=== PATIENT | male | born 1945 | race African-American/Black ===

== ENCOUNTER 2018-10-25 20:26 | Observation (INO) | payer MEDICARE ==
[~2018-10-25] VITALS: Ht 185.4 cm; Wt 81.8 kg
--- NOTE | ~2018-10-25 | HEMODYNAMI ---
PATIENT:TAY MORENO MEDICAL RECORD: [id number] : 41 LOCATION:[facility] [id number]- [facility]# [id number] ADMISSION DATE: 10/25/18 Generatedon:10/26/201810:08 Patient name: TAY MORENO Patient #: [id number] SSN: : 1945 Date of study: 10/26/2018 Page: Of Hemodynamic Procedure Report Patient Data Patient Demographics Procedure consent was obtained First Name: TAY Gender: Male Last Name: TIFFANIE : 1945 [facility] Initial: L Age: 73 year(s) Patient #: [id number] Race: Black Additional ID: [id number] Contact details [address]: [address] [place] [address] State: [place] City: [place] Zip code: [address] Admission Admission Data Admission Date: 10/25/2018 Admission Time: 22:42 Room #: D.E07 Procedure Procedure Types Cath Procedure Diagnostic Procedure LHC LHC w/Coronaries Procedure Description Procedure Date Procedure Date: 10/26/2018 Procedure Start Time: 9:58 Procedure End Time: 10:06 Procedure Staff Name Function Maco Villegas MD Performing Physician Torey Calvillo RT Monitor FitOrbit RT Scrub Nando Condon RN Nurse Cliff Quintero RT Machine Cementer Procedure Data Cath Procedure Fluoroscopy Diagnostic fluoroscopy Total fluoroscopy Time: 1.1 time: 1.1 min min Diagnostic fluoroscopy Total fluoroscopy dose: 332 dose: 332 mGy mGy Contrast Material Contrast Material Type Amount (ml) Isovue 300 40 Entry Location Entry Primary Successful Side Size Upsize Upsize Entry Closure [place] ccessful Closure Location (Fr) 1 (Fr) 2 (Fr) Remarks Device Remarks Radial Right 6 Fr Mechanical artery Short Compression Estimated blood loss: 10 ml Diagnostic catheters Device Type Used For End Catheter Placement DIAGNOSTIC [place] 110cm 5 Procedure Fr catheter ([id number]) Procedure Complications No complications Procedure Medications Medication Administration Route Dosage Oxygen etCO2 Nasal cannula 2 l/min Lidocaine 2% added to field 20 Heparin Flush Bag added to field 2 bags (1000units/500ml NS) 0.9% NaCl I.V. 100 ml/hr Radial Cocktail I.A. 1 syringe (Verapomil 2mg/Nitro 400mcg/Heparin 1500units) Versed I.V. 1 mg Fentanyl I.V. 50 mcg Versed I.V. 1 mg Fentanyl I.V. 50 mcg Hemodynamics Rest Heart Rate: 77 (bpm) Snapshots Pre Cath Intra NCS Post Cath Vital Signs Time Heart Resp SPO2 etCO2 NIBP (mmHg) Rhythm Pain Sedation Rate (ipm) (%) (mmHg) Status Level (bpm) 9:50:38 75 22 98 32 Measuring NSR 0 (11) 10(A) , No pain 9:51:11 77 20 97 29 180/96(115) NSR 0 (11) 10(A) , No pain 9:55:31 74 16 99 18.6 158/82(131) NSR 0 (11) 10(A) , No pain 9:59:47 76 10 98 9.6 152/83(119) NSR 0 (11) 9(A) , No pain 10:03:26 90 11 94 19.3 157/86(0) NSR 0 (11) 10(A) , No pain Medications Time Medication Route Dose Verified Delivered Reason Notes Effectiveness by by 9:52:23 Oxygen etCO2 2 l/min Maco Collier used for Nasal Bakari Condon RN procedure cannula 9:52:29 Lidocaine 2% added 20ml Maco Dewey for local to vial Bakari Villegas MD anesthetic field 9:52:35 Heparin Flush added 2 bags Maco Dewey used for Bag to Bakari Villegas MD procedure (1000units/500ml field NS) 9:52:44 0.9% NaCl I.V. 100 Maco Collier Per ml/hr Bakari Condon RN physician 9:56:11 Versed I.V. 1 mg Maco Collier for sedation Bakari Condon RN 9:56:17 Fentanyl I.V. 50 mcg Maco Collier for sedation Bakari Condon RN 10:00:02 Radial Cocktail I.A. 1 Maco Dewey for (Verapomil syringe Bakari Villegas MD vasodilation 2mg/Nitro 400mcg/Heparin 1500units) 10:00:21 Versed I.V. 1 mg Maco Collier for sedation Bakari Condon RN 10:00:25 Fentanyl I.V. 50 mcg Maco Collier for sedation Bakari Condon RN Procedure Log Time Note 9:30:24 Cliff Quintero RT(R) sent for patient. Start room use. 9:37:20 Signed procedure consent form obtained from patient. 9:37:21 Diagnostic Cath status Elective 9:37:25 Time tracking: Regular hours (M-F 7:00 - 5:00) 9:37:54 Plan of Care:Hemodynamics will remain stable., Cardiac rhythm will remain stable., Comfort level will be maintained., Respiratory function will remain adequate., Patient/ family verbilizes understanding of procedure., Procedure tolerated without complication., Recovers from procedure without complications.. 9:40:27 Patient received from ED to CCL 2 Alert and oriented. Tansferred to table in Supine position. 9:40:28 Warm blankets applied, and jeremias hugger turned on for patient comfort. 9:40:28 Correct patient and procedure confirmed by team. 9:40:29 ECG and BP/O2 sat monitors applied to patient. 9:48:48 Vital chart was started 9:51:43 Baseline sample Acquired. 9:51:47 Rhythm: sinus rhythm 9:52:23 Oxygen 2 l/min etCO2 Nasal cannula was administered by Nando Condon RN; used for procedure; 9:52:29 Lidocaine 2% 20ml vial added to field was administered by Maco Villegas MD; for local anesthetic; 9:52:32 Full Disclosure recording started 9:52:35 Heparin Flush Bag (1000units/500ml NS) 2 bags added to field was administered by Maco Villegas MD; used for procedure; 9:52:36 H&P Date Dictated: 10/26/2018 Emergent; H&P N/A. 9:52:37 Pre-procedure instructions explained to patient. 9:52:37 Pre-op teaching completed and patient verbalized understanding. 9:52:39 Family in patients room. 9:52:40 Patient NPO since Midnight. 9:52:41 Is the patient allergic to Iodine/contrast media? No. 9:52:43 Is patient on blood thinner?Yes 9:52:44 0.9% NaCl 100 ml/hr I.V. was administered by Nando Condon RN; Per physician; 9:52:46 ACC The patient was administered the following blood thiners within the last 24 hours: ACCPlavix 9:53:06 LOADED IN THE ER. 9:53:26 Patient diabetic? No. 9:53:35 Previous problem with sedation/anesthesia? No ? 9:53:36 Snore? Yes 9:53:37 Sleep apnea? No 9:53:38 Deviated septum? No 9:53:39 Opens mouth fully? Yes 9:53:40 Sticks out tongue? Yes 9:53:42 Airway obstruction? No ? 9:53:44 Dentures? No ? 9:53:52 Pre procedure: right dorsailis pedis pulse 1+ Palpable, but thready & weak; easily obliterated 9:54:03 Modified Aleksandr's test Ulnar < 7 seconds 9:54:04 Patient pain scale 0/10 ?. 9:54:07 IV patent on arrival in right forearm with 0.9% NaCl at KVO. 9:54:15 Lab results completed and on chart. 9:54:18 Right Radial & Right Groin area was prepped with chlora-prep and draped in sterile fashion 9:54:20 Alarms reviewed by R. N. 9:54:20 Sharps counted by scrub and verified by R.N. 9:54:28 Use device set Radial Dx or PCI 9:54:29 Tegaderm 4 x 4 (1626W) opened to sterile field. 9:54:30 ACIST Manifold (58611) opened to sterile field. 9:54:31 ACIST Hand Control (45988) opened to sterile field. 9:54:32 ACIST Syringe (81025) opened to sterile field. 9:54:33 Medline Cath Pack ([id number]) opened to sterile field. 9:54:33 Bag Decanter () opened to sterile field. 9:54:34 DIAGNOSTIC WIRE .035 260cm J wire (939756) opened to sterile field. 9:54:35 MBrace Wrist Support ([id number]) opened to sterile field. 9:54:37 SHEATH 6FR Slender (63-2420) opened to sterile field. 9:55:35 --------ALL STOP TIME OUT------ 9:55:36 Final Timeout: patient, procedure, and site verified with staff and physician. All members of the team are in agreement. 9:55:42 Right Radial & Right Groin site verified by team. 9:55:49 Maximum allowable Isovue 300 dose 300ml. Physician notified. (300ml for normal creatinines. For patients with creatinine of 1.7 or higher multiply weight(kg) x 5 divided by creatinine.) 9:55:55 Fire Safety Assessment: A--An alcohol-based skin anteseptic being used preoperatively., C--Open oxygen or nitrous oxide is being used., D--An ESU, laser, or fiber-optic light is being used. 9:55:58 Physical assessment completed. ASA score P 2 - A patient with mild systemic disease as per Maco Villegas MD. 9:56:01 Sedation plan: IV Moderate Sedation Medication:Versed, Fentanyl 9:56:11 Versed 1 mg I.V. was administered by Nando Condon RN; for sedation; 9:56:17 Fentanyl 50 mcg I.V. was administered by Nando Condon RN; for sedation; 9:58:29 Procedure started. 9:58:33 Local anesthetic to right radial artery with Lidocaine 2% by Maco Villegas MD.INITIAL ACCESS ONLY 9:59:37 A 6 Fr Short sheath was inserted into the Right Radial artery 9:59:59 A DIAGNOSTIC [place] 110cm 5 Fr catheter ([id number]) was advanced over the wire and used for Procedure. 10:00:02 Radial Cocktail (Verapomil 2mg/Nitro 400mcg/Heparin 1500units) 1 syringe I.A. was administered by Maco Villegas MD; for vasodilation; 10:00:21 Versed 1 mg I.V. was administered by Nando Condon RN; for sedation; 10:00:25 Fentanyl 50 mcg I.V. was administered by Nando Condon RN; for sedation; 10:00:34 LV angiography performed. 10:00:38 LV gram done using MCGEE 10:00:46 EF : 60 % 10:00:50 Injector settings: Ml/sec: 7, Volume: 15, 10:01:26 LCA angiography performed. 10:03:49 RCA angiography performed. 10:03:52 Catheter removed. 10:03:54 TR BAND Standard ([id number]) opened to sterile field. 10:04:10 Sheath removed intact; hemostasis achieved with Mechanical Compression to the Right Radial artery. 10:04:20 Procedure ended.(Physican Out) 10:04:59 Fluoroscopy time 01.10 minutes. 10:05:08 Fluoroscopy dose: 332 mGy 10:05:08 Flurop Dose total: 332 10:05:11 Contrast amount:Isovue 300 40ml. 10:05:13 Sharps counted by scrub and verified by R.N. 10:05:15 TR band inflated with 14cc of air. 10:05:17 Insertion/operative site no bleeding no hematoma. 10:05:19 Post Procedure Pulses reassessed and unchanged 10:05:22 Post-procedure physical assessment completed. ASA score P 2 - A patient with mild systemic disease as per Maco Villegas MD. 10:05:25 Post procedure rhythm: unchanged. 10:05:28 Estimated blood loss: 10 ml 10:05:30 Post procedure instruction explained to patient.Patient verbalizes understanding. 10:05:30 Patient needs reinforcement of post procedure teaching. 10:05:36 Procedure and supply charges have been captured, reviewed, submitted and are correct. 10:05:38 Procedure Complication : No complications 10:05:55 Vital chart was stopped 10:05:56 See physician's report for complete and final results. 10:06:03 Report given to Pre/Post Procedure Room. 10:06:06 Patient transfered to Pre/Post Procedure Room with Stretcher. 10:06:08 Procedure ended. 10:06:08 Full Disclosure recording stopped 10:07:06 End room use (Document Last) Device Usage Item Name Manufacture Quantity Catalog Hospital Part Current Minimal Lot# / Number Charge Number Stock Stock Serial# Code Tegaderm 4 3M 1 1626W [id number] [id number] 5 x 4 (1626W) ACIST Acist 1 25388 103166 020686 161325 5 Manifold Medical (81832) Systems Inc ACIST Hand Acist 1 11934 379395 176561 257656 5 Control Medical (21628) Systems Inc ACIST Acist 1 99741 060301 993133 532959 20 Syringe Medical (95173) Systems Inc Medline Medline 1 [id number] 426610 83668 612915 5 Cath Pack ([id number]) Bag Microtek 1 023587 78030 146911 5 Decanter Medical Inc. (2002S) DIAGNOSTIC St Misha 1 671543 203793 677233 080496 30 WIRE .035 260cm J wire (489377) MBrace Advanced 1 140-0250-00 704898 48608 072998 5 Wrist Vascular Support Dynamics ([id number]) SHEATH 6FR Terumo 1 [id number] 569422 186486 088278 5 Slender (80-1060) DIAGNOSTIC Terumo 1 40-6133 564563 083991 144084 5 [place] 110cm 5 Fr catheter (191162) TR BAND Terumo 1 [id number] 442499 976755 502668 40 Standard ([id number]) Signature Audit [place] Stage Time Signature Unsigned Intra-Procedure 10/26/2018 Torey Calvillo 10:08:37 AM RT(R) Signatures Monitor : Torey Calvillo RT Signature : Date : Time : [place] [id number] [place] [address]
[2018-10-25 19:30] VITALS: BP 194/67
[2018-10-25 20:06] VITALS: BP 190/57
[2018-10-25 20:31] VITALS: BP 172/63
[2018-10-25 21:00] VITALS: BP 158/80
[2018-10-25 21:24] LABS: BASOPHILS 0 % (0-2); EOSINOPHILS 0.7 % (0-7); HEMATOCRIT 40.1 % (42.0-54.0); HEMOGLOBIN 13.6 g/dL (13.5-17.5); IMMATURE GRANULOCYTES 0.2 % (0-5); LYMPHOCYTES 50.6 % (15-50); MCH 30.8 pg (26.0-34.0); MCHC 33.9 g/dL (31.0-37.0); MCV 90.7 fL (80.0-100.0); MEAN PLATELET VOLUME 9.4 fL (7.4-10.4); MONOCYTES 7.6 % (2-11); NEUTROPHILS 40.9 % (40-80); PLATELET COUNT 190 10x3/uL (130-400); RBC 4.42 10x6/uL (4.20-6.10); RDW 14.3 % (11.5-14.5); WBC 4.3 10x3/uL (4.8-10.8)
[2018-10-25 21:48] LABS: ALBUMIN 3.6 g/dL (3.4-5.0); ALKALINE PHOSPHATASE 57 U/L (46-116); ALT (SGPT) 27 U/L (10-68); BILIRUBIN - TOTAL 0.23 mg/dL (0.2-1.3); CALC OSMOLALITY 271 mosm/kg (275-300); CALCIUM 8.6 mg/dL (8.5-10.1); CARBON DIOXIDE 25.5 mmol/L (21.0-32.0); CHLORIDE - SERUM 101 mmol/L (98-107); CREATININE - SERUM 1.2 mg/dL (0.6-1.3); GLUCOSE 94 mg/dL (74-106); POTASSIUM - SERUM 3.5 mmol/L (3.5-5.1); PROTEIN - SERUM 6.7 g/dL (6.4-8.2); SODIUM 135 mmol/L (136-145); UREA NITROGEN 17 mg/dL (7-18); eGFR NON AFRICAN AMERICAN 63 mL/min (90-120)
[2018-10-25 21:55] LABS: APTT 20.3 SECONDS (22.8-39.4); INR 0.94 (0.85-1.17); PROTIME 12.1 SECONDS (11.6-15.0)
--- NOTE | 2018-10-25 22:00 | NUR ---
PATIENT SLEEPING, AROUSES TO VERBAL STIMULI. NO NEEDS NOTED. NO C/O OF PAIN. WILL CONTINUE TO MONIOR.
[2018-10-25 22:01] VITALS: BP 174/92
[2018-10-25 22:01] LABS: CKMB 5.4 U/L (0.0-3.6); CREATINE KINASE 490 UL (21-232); TROPONIN-I < 0.017 ng/mL (0.000-0.060)
[2018-10-25 23:00] VITALS: BP 161/76
--- NOTE | 2018-10-25 23:00 | NUR ---
PATIENT SLEEPING, RESPIRATIONS EVEN AND UNLABORED. COLOR WNL FOR RACE. WILL CONTINUE TO MONITOR.
[2018-10-26] VITALS (7 sets, daily range): BP systolic 151–178; BP diastolic 75–88; Ht 185.4 cm; Wt 81.8 kg
--- NOTE | 2018-10-26 01:00 | NUR ---
PATIENT SLEEPING, RESPIRATIONS EVEN AND UNLABORED. COLOR WNL FOR RACE. WILL CONTINUE TO MONITOR.
--- NOTE | 2018-10-26 02:00 | NUR ---
PATIENT SLEEPING. RESPIRATIONS EVEN AND UNLABORED. COLOR WNL FOR RACE. WILL CONTINUE TO MONITOR.
[2018-10-26 02:57] LABS: HEMOGLOBIN 14.6 g/dL (13.5-17.5); MCV 91.3 fL (80.0-100.0); PLATELET COUNT 183 10x3/uL (130-400); RBC 4.71 10x6/uL (4.20-6.10); RDW 14.2 % (11.5-14.5); WBC 4.4 10x3/uL (4.8-10.8)
--- NOTE | 2018-10-26 03:00 | NUR ---
PATIENT GIVEN SANDWICH TRAY, ICE CREAM, AND SODA. UPDATED ON PLAN OF CARE. WILL CONTINUE TO MONITOR.
[2018-10-26 03:10] LABS: CALC OSMOLALITY 285 mosm/kg (275-300); CALCIUM 8.2 mg/dL (8.5-10.1); CARBON DIOXIDE 29.3 mmol/L (21.0-32.0); CHLORIDE - SERUM 106 mmol/L (98-107); CREATININE - SERUM 1.2 mg/dL (0.6-1.3); GLUCOSE 100 mg/dL (74-106); POTASSIUM - SERUM 3.9 mmol/L (3.5-5.1); SODIUM 143 mmol/L (136-145); TROPONIN-I < 0.017 ng/mL (0.000-0.060); UREA NITROGEN 16 mg/dL (7-18); eGFR NON AFRICAN AMERICAN 63 mL/min (90-120)
[2018-10-26 03:19] LABS: EOSINOPHILS 2 % (0-7); LYMPHOCYTES 60 % (15-50); NEUTROPHILS 38 % (40-80); PLATELET ESTIMATE DECREASED
--- NOTE | 2018-10-26 04:00 | NUR ---
PATIENT AWAKE AND ALERT, WATCHING TV. NO NEEDS NOTED. WILL CONTINUE TO MONITOR.
--- NOTE | 2018-10-26 05:00 | NUR ---
PATIENT APPEARS TO BE SLEEPING, RESPIRATIONS EVEN AND UNLABORED. WILL CONTINUE TO MONITOR.
--- NOTE | 2018-10-26 06:00 | NUR ---
PATIENT APPEARS TO BE SLEEPING, RESPIRATIONS EVEN AND UNLABORED, COLOR WNL FOR RACE. WILL CONTINUE TO MONITOR.
--- NOTE | 2018-10-26 07:00 | NUR ---
HAND OFF REPORT RECEIVED FROM NORMA MCCARTY. PT OBSERVED LYING IN BED, RESPIRATIONS EVEN AND UNLABORED. PT DENIES ANY PAIN OR NEEDS. CALL LIGHT IN REACH. PT AWARE HE IS BEING ADMITTED TO [facility], AWITING BED ASSIGNMENT. WILL CONTINUE TO MONITOR.
--- NOTE | 2018-10-26 07:15 | NUR ---
AHA BREAKFAST TRAY GIVEN PER DIETARY ORDERS.
[2018-10-26 09:00] LABS: ANION GAP 11.8 mmol/L (8-16); CALCIUM 8.6 mg/dL (8.5-10.1); CARBON DIOXIDE 27.3 mmol/L (21.0-32.0); CREATININE - SERUM 1.3 mg/dL (0.6-1.3); POTASSIUM - SERUM 4.1 mmol/L (3.5-5.1)
--- NOTE | 2018-10-26 10:30 | NUR ---
PT RESTING COMFORTABLY. VSS. RIGHT RADIAL TR BAND IN PLACE. NO BLEEDING/HEMATOMA NOTED. CALL LIGHT WITHIN REACH.
--- NOTE | 2018-10-26 11:00 | NUR ---
PT STILL DROWSY. 3cc REMOVED FROM RIGHT RADIAL TR BAND. NO BLEEDING/HEMATOMA NOTED. CALL LIGHT WITHIN REACH. PT SET UP WITH SANDWICH TRAY AND DRINK. DENIES NAUSEA.
--- NOTE | 2018-10-26 11:30 | NUR ---
3cc OF AIR REMOVED FROM TR BAND. NO BLEEDING/HEMATOMA NOTED. DENIES CHEST PAIN AT THIS TIME. VSS. PT HAS NO RIDE AT THIS TIME. HE HAS EATING HIS SANDWICH AND DENIES NAUSEA.
--- NOTE | 2018-10-26 11:45 | NUR ---
3cc OF AIR REMOVED FROM TR BAND. PT TOLERATED WELL. NO BLEEDING/HEMATOMA NOTED. RIGHT FA PIV D/C'D WITH CATH TIP INTACT. PT INSTRUCTED TO GET UP AND DRESSED.
--- NOTE | 2018-10-26 12:00 | NUR ---
DISCUSSED DISCHARGE INSTRUCTIONS WITH PT. HE VOICED UNDERSTANDING. PT REPORTS HE HAS ALL BELONGINGS. INCLUDING CLOTHING, WATCH, NECKLACE, BRACELET, CELL PHONE, AND GLASSES. HE HAS CALLED AND WE ARE WAITING FOR A RIDE. TR BAND REMOVED AND DRESSING APPLIED. NO BLEEDING/HEMATOMA NOTED. RIGHT WRIST BRACE ON AND PT INSTRUCTED TO KEEP ON FOR 2 HOURS ONCE HE IS HOME.
--- NOTE | 2018-10-26 12:10 | NUR ---
PT TAKEN OUT TO VEHCILE BY WHEELCHAIR. NO S/S OF DISTRESS NOTED. ALL BELONGINGS AND PAPERWORK IN HAND.
--- NOTE | 2018-10-28 14:57 | OP ---
PATIENT NAME: TAY MORENO MEDICAL RECORD: [id number] :41 [facility]ATION:[facility] ADMISSION DATE:10/25/18 SURGEON: YASMEEN ARMIJO MD DATE OF OPERATION: 10/26/2018 PROCEDURES: 1. Left heart catheterization. 2. Selective coronary angiography. 3. Left ventriculogram. INDICATION: Chest pain compatible with angina. PROCEDURE IN DETAIL: After informed consent was obtained and after detailed explanation of risks, benefits as well as alternative therapies, the patient elected to proceed with angiogram. The right radial area was prepped and draped in normal sterile fashion. Right radial artery was cannulated via modified Seldinger technique with placement of 5-Bahraini sheath. All catheters exchanged through this sheath. FINDINGS: The left ventriculogram was performed in standard 30-degree MCGEE view, reveals good cardiac wall motion throughout all segments. Overall ejection fraction estimated 60%. SELECTIVE CORONARY ANGIOGRAPHY: Left main, left anterior descending, left circumflex, right coronary are all smooth-walled vessels with no angiographic evidence of coronary artery disease. OVERALL IMPRESSION: 1. No angiographic evidence of coronary artery disease. 2. Normal left heart pressures. 3. Normal left ventricular systolic function. Chest pain is noncardiac in etiology. No further cardiac workup needs to be ascertained. TRANSINT:[id number] Voice Confirmation ID: [id number] DOCUMENT ID: [id number] YASMEEN ARMIJO MD at 1457 CC: [id number] DICTATION DATE: 10/26/18 1009 WOOD PANEL INSPECTOR: 10/26/18 1052 DIS IN 10/26/18 [place] [id number] [place] [id number]
--- NOTE | 2018-10-28 14:57 | DS ---
PATIENT:TAY MORENO :41 MEDICAL RECORD: [id number] DISCHARGE SUMMARY ADMISSION DATE: 10/25/18 DISCHARGE DATE: 10/26/18 DISCHARGE DIAGNOSES: 1. Chest pain. 2. Normal cardiac catheterization. HOSPITAL COURSE: Mr. Moreno presents with chest pain compatible with angina; however, cardiac catheterization is normal. Discharged home with no cardiac followup necessary. TRANSINT:[id number] Voice Confirmation ID: [id number] DOCUMENT ID: [id number] YASMEEN ARMIJO MD at 1457 CC: [id number] DICTATION DATE: 10/26/18 1008 NEWS COPY EDITOR: 10/26/18 2233 DIS IN 10/26/18 [place] [id number] [place] [address]
== END 2018-10-26 12:10 | disposition home or self-care (01) ==
LOC: D.ER 20:26 → D.EDHOLD 22:42 → D.CLR 22:42 → D.EDHOLD 22:42 → OBSVTIME 22:42 → D.CLR 10-26 10:12
PROVIDERS: Family Medicine; ADMIT Internal Medicine Interventional Cardiology; ATTEND Internal Medicine Interventional Cardiology
DX: R07.89 Other chest pain (principal); I10 Essential (primary) hypertension; Z82.49 Family history of ischemic heart disease and other diseases of the circulatory system

== ENCOUNTER 2018-12-09 23:44 | Emergency (ER) | payer MEDICARE ==
[2018-12-10 00:03] VITALS: BMI 24.3
[2018-12-10] MEDS ORDERED: BP MEDICATION (00:04)
[2018-12-10 03:27] VITALS: BP 122/74
[2019-03-28 00:35] VITALS: BMI 24.3
== END 2018-12-10 03:28 | disposition home or self-care (01) ==
LOC: D.ER 23:44
DX: M70.21 Olecranon bursitis, right elbow (principal)

== ENCOUNTER 2018-12-21 05:40 | Day surgery (SDC) | payer MEDICARE ==
[2018-12-19 13:26] LABS: BASOPHILS 0.1 % (0-2); EOSINOPHILS 0.3 % (0-7); HEMATOCRIT 43.7 % (42.0-54.0); HEMOGLOBIN 14.7 g/dL (13.5-17.5); IMMATURE GRANULOCYTES 0.3 % (0-5); LYMPHOCYTES 19.8 % (15-50); MCH 30.8 pg (26.0-34.0); MCHC 33.6 g/dL (31.0-37.0); MCV 91.6 fL (80.0-100.0); MEAN PLATELET VOLUME 8.9 fL (7.4-10.4); MONOCYTES 11.8 % (2-11); NEUTROPHILS 67.7 % (40-80); PLATELET COUNT 182 10x3/uL (130-400); RBC 4.77 10x6/uL (4.20-6.10); RDW 14.1 % (11.5-14.5)
[2018-12-19 13:55] LABS: ANION GAP 13.7 mmol/L (8-16); CALCIUM 8.9 mg/dL (8.5-10.1); CARBON DIOXIDE 26.5 mmol/L (21.0-32.0); CREATININE - SERUM 1.3 mg/dL (0.6-1.3); POTASSIUM - SERUM 4.2 mmol/L (3.5-5.1)
[~2018-12-21] VITALS: Ht 185.4 cm; Wt 84.4 kg
[~2018-12-21 05:40] MED LIST: BP MEDICATION
[2018-12-21 06:10] VITALS: BP 137/76; Ht 185.4 cm; Wt 84.4 kg
--- NOTE | 2018-12-21 08:55 | NUR ---
PATIENT ARRIVED IN OR WITH RING ON OPERATIVE HAND, FOURTH DIGIT. RING REMOVED BY DR. BACA IN OR. RING PLACED IN SPECIMEN CUP WITH PATIENT STICKERS APPLIED AND PASSED TO PACU NURSE CATRACHITA.
--- NOTE | 2018-12-21 09:35 | NUR ---
REC'D FROM RR. DRESSING CDI TO RUE. EXTREMITY WITH SLING IM PLACE. GRAPE JUICE BROUGHT TO PT. DENIES PAIN/NEEDS.
--- NOTE | 2018-12-21 10:05 | NUR ---
VIPIN ORONA BROUGHT TO PT. AMBULATED TO BATHROOM AND VOIDED WITHOUT DIFFICULTY. TELEPHONE GIVEN TO PT. HE IS CALLING FOR A RIDE.
--- NOTE | 2018-12-21 10:25 | NUR ---
WRITTEN AND VERBAL DC INST. GIVEN TO PT. VERBALIZED UNDERSTANDING.
--- NOTE | 2018-12-21 10:30 | NUR ---
TOLERATED FL TRAY. IV DC'D WITH CATHETER INTACT.
--- NOTE | 2018-12-21 10:43 | NUR ---
DC'D HOME WITH FRIEND VIA PRIVATE VEHICLE. TAKEN TO VEHICLE VIA WHEELCHAIR. STABLE AT TIME OF DC.
== END 2018-12-21 10:43 | disposition home or self-care (01) ==
LOC: D.OPS 05:40 → D.PAN 07:30 → D.OPS 10:43
PROVIDERS: ATTEND Orthopaedic Surgery
DX: M70.21 Olecranon bursitis, right elbow (principal); M77.8 Other enthesopathies, not elsewhere classified; Z01.812 Encounter for preprocedural laboratory examination

== ENCOUNTER 2018-12-24 00:37 | Emergency (ER) | payer MEDICARE ==
[2018-12-24 00:43] VITALS: BP 141/90; BMI 24.5
== END 2018-12-24 00:49 | disposition home or self-care (01) ==
LOC: D.ER 00:37
DX: Z48.00 Encounter for change or removal of nonsurgical wound dressing (principal)

== ENCOUNTER 2019-03-28 00:18 | Emergency (ER) | payer MEDICARE ==
[~2019-03-28] VITALS: Ht 185.4 cm; Wt 83.6 kg
[2019-03-28 00:35] VITALS: Ht 185.4 cm; Wt 83.6 kg
[2019-03-28 02:12] LABS: HEMATOCRIT 41.2 % (42.0-54.0); MCH 30.5 pg (26.0-34.0); MCV 89.8 fL (80.0-100.0); RBC 4.59 10x6/uL (4.20-6.10); RDW 14.4 % (11.5-14.5); WBC 4.3 10x3/uL (4.8-10.8)
[2019-03-28 02:13] LABS: BASOPHILS 0.2 % (0-2); EOSINOPHILS 0.5 % (0-7); IMMATURE GRANULOCYTES 0.2 % (0-5); LYMPHOCYTES 57.1 % (15-50); MEAN PLATELET VOLUME 9.2 fL (7.4-10.4); MONOCYTES 8.3 % (2-11); NEUTROPHILS 33.7 % (40-80); PLATELET COUNT 175 10x3/uL (130-400)
[2019-03-28 02:36] LABS: ALBUMIN 3.6 g/dL (3.4-5.0); ANION GAP 12.2 mmol/L (8-16); BILIRUBIN - TOTAL 0.3 mg/dL (0.2-1.3); CALCIUM 8.7 mg/dL (8.5-10.1); CREATININE - SERUM 1.1 mg/dL (0.6-1.3); POTASSIUM - SERUM 4.2 mmol/L (3.5-5.1); PROTEIN - SERUM 6.8 g/dL (6.4-8.2)
[2019-03-28 02:48] VITALS: BP 168/80
== END 2019-03-28 02:49 | disposition home or self-care (01) ==
LOC: D.ER 00:18
PROVIDERS: Family Medicine
DX: R51 Headache (principal)

== ENCOUNTER 2019-10-18 22:31 | Emergency (ER) | payer MEDICARE ==
[~2019-10-18] VITALS: Ht 185.4 cm; Wt 81.8 kg
[2019-10-18 22:36] VITALS: Ht 185.4 cm; Wt 81.8 kg
[2019-10-18] MEDS ORDERED: TORADOL10 MG PO (23:48)
[2019-10-19 00:05] VITALS: BP 160/92
== END 2019-10-19 | disposition home or self-care (01) ==
LOC: D.ER 22:31
DX: M17.0 Bilateral primary osteoarthritis of knee (principal); M25.562 Pain in left knee; M25.561 Pain in right knee

== ENCOUNTER 2019-11-30 23:54 | Emergency (ER) | payer MEDICARE ==
[~2019-11-30] VITALS: Ht 185.4 cm; Wt 81.8 kg
[~2019-11-30 23:54] MED LIST changes: +TORADOL10 MG PO
[2019-12-01 00:02] VITALS: Ht 185.4 cm; Wt 81.8 kg
[2019-12-01] MEDS ORDERED: AUGMENTIN 875-11 TAB PO (00:19)
[2019-12-01] MEDS ORDERED: FLUTICASONE PRO16 GM NASAL (00:19)
[2019-12-01 00:32] VITALS: BP 155/80
== END 2019-12-01 00:32 | disposition home or self-care (01) ==
LOC: D.ER 23:54
DX: J01.90 Acute sinusitis, unspecified (principal); R51 Headache; R42 Dizziness and giddiness

== ENCOUNTER 2020-03-08 00:30 | Emergency (ER) | payer MEDICARE ==
[~2020-03-08] VITALS: Ht 185.4 cm; Wt 85.0 kg
[~2020-03-08 00:30] MED LIST changes: +AUGMENTIN 875-11 TAB PO; +FLUTICASONE PRO16 GM NASAL
[2020-03-08 00:35] VITALS: Ht 185.4 cm; Wt 85.0 kg
[2020-03-08 01:29] LABS: BASOPHILS 0 % (0-2); EOSINOPHILS 0.7 % (0-7); HEMATOCRIT 39.2 % (42.0-54.0); HEMOGLOBIN 13.1 g/dL (13.5-17.5); IMMATURE GRANULOCYTES 0.2 % (0-5); LYMPHOCYTES 53.1 % (15-50); MCH 30.9 pg (26.0-34.0); MCHC 33.4 g/dL (31.0-37.0); MCV 92.5 fL (80.0-100.0); MEAN PLATELET VOLUME 8.9 fL (7.4-10.4); MONOCYTES 9.3 % (2-11); NEUTROPHILS 36.7 % (40-80); PLATELET COUNT 169 10x3/uL (130-400); RBC 4.24 10x6/uL (4.20-6.10); RDW 14.5 % (11.5-14.5); WBC 4.1 10x3/uL (4.8-10.8)
[2020-03-08 01:41] LABS: CALC OSMOLALITY 282 mosm/kg (275-300); CALCIUM 8.5 mg/dL (8.5-10.1); CARBON DIOXIDE 26.4 mmol/L (21.0-32.0); CHLORIDE - SERUM 107 mmol/L (98-107); CREATININE - SERUM 1.1 mg/dL (0.6-1.3); GLUCOSE 123 mg/dL (74-106); POTASSIUM - SERUM 3.8 mmol/L (3.5-5.1); SODIUM 141 mmol/L (136-145); UREA NITROGEN 15 mg/dL (7-18); eGFR NON AFRICAN AMERICAN 69 mL/min (90-120)
[2020-03-08 02:06] LABS: ALBUMIN 3.5 g/dL (3.4-5.0); ALKALINE PHOSPHATASE 65 U/L (30-120); ALT (SGPT) 31 U/L (10-68); CREATINE KINASE 336 UL (21-232)
[2020-03-08 02:07] LABS: CKMB 3.4 U/L (0.0-3.6)
[2020-03-08 02:41] VITALS: BP 152/78
== END 2020-03-08 02:41 | disposition home or self-care (01) ==
LOC: D.ER 00:30
PROVIDERS: Family Medicine
DX: M79.605 Pain in left leg (principal)

== ENCOUNTER 2020-05-21 00:54 | Emergency (ER) | payer MEDICARE ==
[~2020-05-21] VITALS: Ht 185.4 cm; Wt 75.0 kg
[2020-05-21 01:31] VITALS: Ht 185.4 cm; Wt 75.0 kg
[2020-05-21] MEDS ORDERED: CYCLOBENZAPRINE10 MG PO (02:52)
[2020-05-21 03:42] VITALS: BP 151/86
== END 2020-05-21 03:41 | disposition home or self-care (01) ==
LOC: D.ER 00:54
DX: S39.012A Strain of muscle, fascia and tendon of lower back, initial encounter (principal); M54.17 Radiculopathy, lumbosacral region; X50.0XXA Overexertion from strenuous movement or load, initial encounter; Y99.0 Civilian activity done for income or pay

== ENCOUNTER 2020-12-27 23:35 | Emergency (ER) | payer MEDICARE ==
[~2020-12-27] VITALS: Ht 185.4 cm; Wt 86.4 kg
[~2020-12-27 23:35] MED LIST changes: +CYCLOBENZAPRINE10 MG PO
[2020-12-27 23:40] VITALS: Ht 185.4 cm; Wt 86.4 kg
[2020-12-28] MEDS ORDERED: MUPIROCIN15 GM TOPICAL (01:12)
[2020-12-28 01:38] VITALS: BP 150/80
== END 2020-12-28 01:30 | disposition home or self-care (01) ==
LOC: D.ER 23:35
DX: S20.362A Insect bite (nonvenomous) of left front wall of thorax, initial encounter (principal); W57.XXXA Bitten or stung by nonvenomous insect and other nonvenomous arthropods, initial encounter; Y93.9 Activity, unspecified; Y92.9 Unspecified place or not applicable

== ENCOUNTER 2021-01-27 23:11 | Emergency (ER) | payer MEDICARE ==
[~2021-01-27] VITALS: Ht 185.4 cm; Wt 84.5 kg
[~2021-01-27 23:11] MED LIST changes: +MUPIROCIN15 GM TOPICAL
[2021-01-27 23:20] VITALS: Ht 185.4 cm; Wt 84.5 kg
[2021-01-27 23:49] LABS: BASOPHILS 0.5 % (0-2); EOSINOPHILS 0.2 % (0-7); HEMATOCRIT 39.7 % (42.0-54.0); HEMOGLOBIN 13.3 g/dL (13.5-17.5); LYMPHOCYTES 51.3 % (15-50); MCH 30.7 pg (26.0-34.0); MCHC 33.6 g/dL (31.0-37.0); MCV 91.5 fL (80.0-100.0); MEAN PLATELET VOLUME 6.9 fL (7.4-10.4); MONOCYTES 12.3 % (2-11); NEUTROPHILS 35.7 % (40-80); PLATELET COUNT 188 10x3/uL (130-400); RBC 4.34 10x6/uL (4.20-6.10); RDW 14.7 % (11.5-14.5)
[2021-01-27 23:58] LABS: CALC OSMOLALITY 286 mosm/kg (275-300); CALCIUM 8.3 mg/dL (8.5-10.1); CARBON DIOXIDE 26.7 mmol/L (21.0-32.0); CHLORIDE - SERUM 106 mmol/L (98-107); CREATININE - SERUM 1.2 mg/dL (0.6-1.3); GLUCOSE 133 mg/dL (74-106); POTASSIUM - SERUM 3.6 mmol/L (3.5-5.1); SODIUM 142 mmol/L (136-145); UREA NITROGEN 17 mg/dL (7-18); eGFR NON AFRICAN AMERICAN 62 mL/min (90-120)
[2021-01-27 23:59] LABS: APTT 26.5 SECONDS (22.8-39.4); INR 1.04 (0.85-1.17); PROTIME 12.5 SECONDS (11.6-15.0)
[2021-01-28 00:16] LABS: ALBUMIN 3.5 g/dL (3.4-5.0); ALKALINE PHOSPHATASE 80 U/L (30-120); ALT (SGPT) 33 U/L (10-68); BILIRUBIN - TOTAL 0.28 mg/dL (0.2-1.3); CREATINE KINASE 363 UL (21-232); MAGNESIUM - SERUM 1.9 mg/dL (1.8-2.4); PROTEIN - SERUM 6.8 g/dL (6.4-8.2); TROPONIN-I < 0.017 ng/mL (0.000-0.060)
[2021-01-28 02:28] VITALS: BP 157/88
== END 2021-01-28 02:28 | disposition home or self-care (01) ==
LOC: D.ER 23:11
PROVIDERS: Family Medicine
DX: R07.89 Other chest pain (principal); R20.0 Anesthesia of skin